=== PATIENT | male | born 1965 | race Caucasian/White ===

== ENCOUNTER 2016-09-06 09:39 | Emergency (ER) | payer BC ==
[2016-09-06] MEDS ORDERED: Diphtheria,Pertussis(Acell),Tetanus Vaccine 0.5 ML SDV inactive IM ONE (10:15)
[2016-09-06] MEDS ORDERED: Bupivacaine 0.5% 10 ML SDV INJECT ONE (10:15)
--- NOTE | 2016-09-06 10:19 | EDM.PDOC ---
ED HPI Skin/Rash - General Chief Complaint: Laceration Stated Complaint: Laceration to thumb Time Seen by Provider: 09/06/16 10:05 Source: Reports: Patient, RN notes reviewed History Limitations: Reports: No limitations - History of Present Illness INITIAL COMMENTS - FREE TEXT/NARRATIVE: 50 year old male presents to the ED with laceration over PIP joint of the left thumb. Injury occurred as a result of a crush type injury involving a grain auger. Occurred around 9am. He has good movement of the thumb. No numbness or tingling. Last tetanus is unknown. No additional injuries. - Related Data Allergies Allergy/AdvReac Type Severity Reaction Status Date / Time No Known Allergies Allergy Verified 09/06/16 09:53 Home Meds: Ambulatory Orders Medication Instructions Recorded Confirmed Adalimumab [Humira] 20 mg SQ ASDIRECTED 09/06/16 09/06/16 Folic Acid 1 mg PO DAILY 09/06/16 09/06/16 Past Medical History Musculoskeletal History: Reports: RA - Past Surgical History Musculoskeletal Surgical History: Reports: Arthroscopic knee, Other (see below) Other Musculoskeletal Surgeries/Procedures:: thumb surgery Social & Family History - Family History Cardiac: Reports: Other (see below) Other Cardiac Family History: "mother had heart problems" - Tobacco Use Smoking Status *Q: Never Smoker Second Hand Smoke Exposure: No - Caffeine Use Caffeine Use: Reports: Coffee, Soda - Recreational Drug Use Recreational Drug Use: No ED ROS GENERAL - Review of Systems Review Of Systems: See Below Musculoskeletal: Reports: other (left thumb pain) Skin: Reports: wound Neurological: Reports: No Symptoms. Denies: Numbness, Tingling, Weakness ED EXAM, SKIN/RASH Exam: See Below Exam Limited By: No limitations General Appearance: alert, WD/WN, no apparent distress Respiratory/Chest: no respiratory distress Cardiovascular: regular rate, rhythm Extremities: normal range of motion, other (full ROM against resistance of the left thumb. No tendon injury.) Neurological: alert, oriented, no motor/sensory deficits Skin: Warm, Dry, Normal color, Other (large, deep 6 cm laceration to the dorsal aspect of the left thumb PIP joint. No tendon injury. CMS intact.) ED SKIN PROCEDURES - Laceration/Wound Repair Left Finger Lac/wound length in cm: 6 Appearance: superficial (partially), subcutaneous, other (horse shoe shaped over left thumb PIP joint) Distal NVT: neuro & vascular intact, no tendon injury Anesthetic type: digital Local anesthesia - Bupivicaine (Marcaine): 0.5% plain Local anesthetic volume: 5cc Exploration/Debridement/Repair: wound explored, in a bloodless field, explored to base, minimal debridement, no foreign material found Closed with: sutures Suture size: 4-0 # of sutures: 7 Suture type: nylon, interrupted, simple Sterile dressing applied: nurse Tetanus status addressed: Yes Complications: No Course - Vital Signs Last Recorded V/S: Last Vital Signs Temp 97.5 F 09/06/16 09:49 Pulse 72 09/06/16 09:49 Resp 16 09/06/16 09:49 BP 134/97 H 09/06/16 09:49 Pulse Ox 96 09/06/16 09:49 - Orders/Labs/Meds Orders: Active Orders 24 hr Category Date Time Status Vaccines to be Administered [RC] PER UNIT ROUTINE Care 09/06/16 10:15 Active Fingers Thumb Lt FA [CR] Stat Exams 09/06/16 10:15 Taken Meds: Medications Discontinued Medications Generic Name Dose Route Start Last Admin Trade Name Alison PRN Reason Stop Dose Admin Bupivacaine HCl 10 ml 09/06/16 10:15 09/06/16 10:40 Sensorcaine-Mpf 0.5% INJECT 09/06/16 10:16 10 ml ONETIME ONE Administration Diphtheria/Tetanus/Acell Pertussis 0.5 ml 09/06/16 10:15 09/06/16 10:43 Boostrix IM 09/06/16 10:16 0.5 ml .ONCE ONE Administration - Re-Assessments/Exams Free Text/Narrative Re-Assessment/Exam: X-ray of left thumb reveals some degenerative changes. There is a subtle area that may represent a corner fracture however this appears old and not acute. Radiologist report is pending. Will place patient on antibiotics prophylactically. Educated on wound care, follow-up, and return precautions. Departure - Departure Time of Disposition: 11:12 Disposition: Home, Self-Care 01 Condition: good Clinical Impression: Laceration Instructions: Laceration Care, Adult, [id number] Referrals: PCP,None [Primary Care Provider] - Forms: ED Department Discharge Additional Instructions: Laceration with suture repair Try to keep initial dressing in place for 24 hours After 24 hours, you can gently wash the wound with gentle soap and water Do not submerge the area in water until the sutures are out Apply antibiotic ointment and keep the wound covered for first 2-3 days then leave open to air Keep wound covered if there is a chance it can get dirty Sutures need to be removed in 8-10 days [facility] removes sutures for free. Their hours are 8am-6pm Wednesday through Wednesday. Return to clinic if signs or symptoms of infection arise, including increased redness, swelling, drainage, or fever Tylenol or Ibuprofen as needed for pain Keflex 500mg 3 times a day for 5 days - My Orders Last 24 Hours: My Active Orders 09/06/16 10:15 Vaccines to be Administered [RC] PER UNIT ROUTINE Fingers Thumb Lt FA [CR] Stat - Assessment/Plan Last 24 Hours: My Active Orders 09/06/16 10:15 Vaccines to be Administered [RC] PER UNIT ROUTINE Fingers Thumb Lt FA [CR] Stat
[2016-09-06 11:59] VITALS: BP 126/88
--- NOTE | 2016-09-07 10:34 | CR ---
Left thumb: Three views of the left thumb were obtained. Comparison: No previous thumb exam. Severe joint space narrowing is noted within the MCP joint with osteophytes. IP joint shows minimal degenerative change. No acute fracture or other bony abnormality is identified. Soft tissue swelling is present. Impression: 1. Degenerative change as described above. 2. Soft tissue swelling. 3. No acute bony abnormality is identified. Diagnostic code #2
== END 2016-09-06 11:35 | disposition home or self-care (01) ==
LOC: JD.ED 09:39
DX: S61.012A Laceration without foreign body of left thumb without damage to nail, initial encounter (principal); Z23 Encounter for immunization; W23.0XXA Caught, crushed, jammed, or pinched between moving objects, initial encounter; Z98.890 Other specified postprocedural states
CPT/HCPCS: 12002; 12042; 73140-26-FA; 73140-FA; 90471; 90715; 99283; 99284-25

== ENCOUNTER 2019-04-02 18:10 | Emergency (ER) | payer BC ==
[2019-04-02 18:25] VITALS: BP 136/75; PULSE 89
--- NOTE | 2019-04-02 19:00 | EDM.PDOC ---
ED HPI GENERAL MEDICAL PROBLEM - General Chief Complaint: Lower Extremity Injury/Pain Stated Complaint: LT ANKLE INJURY Time Seen by Provider: 04/02/19 18:28 Source of Information: Reports: Patient, RN Notes Reviewed History Limitations: Reports: No Limitations - History of Present Illness INITIAL COMMENTS - FREE TEXT/NARRATIVE: Patient is a 53-year-old male who presents to the ED for evaluation of a left ankle injury. Patient notes that after lutheran this morning, he was walking around his car, when he slipped on the ice and ended up injuring his left ankle. Patient did try to use some tramadol this morning, and provided a little bit of relief, but has not helped a whole off a lot. He also has a history of rheumatoid arthritis, he is on Enbrel and methotrexate. Patient states he is not able to bear much weight on the extremity, as it is very painful. He does appreciate swelling to both medial and lateral aspects of his ankle. He has been using ice on and off all day to his ankle. He denies any pain into his knee or hip, he has no numbness or tingling into his toes. Left Ankle Pain Score (Numeric/FACES): 4 - Related Data Allergies Allergy/AdvReac Type Severity Reaction Status Date / Time No Known Allergies Allergy Verified 04/02/19 18:25 Home Meds: Home Meds Folic Acid 1 mg PO DAILY 09/06/16 [History] Etanercept [Enbrel] 0 mg INJECT ASDIRECTED 02/12/18 [History] traMADol [Ultram] 50 mg PO Q6H PRN #30 tab 02/12/18 [Rx] Methotrexate Sodium [Methotrexate] 04/02/19 [History] Past Medical History - Past Health History Medical/Surgical History: Denies Medical/Surgical History Musculoskeletal History: Reports: RA - Past Surgical History Musculoskeletal Surgical History: Reports: Arthroscopic Knee, Other (See Below) Social & Family History - Family History Cardiac: Reports: Other (See Below) Other Cardiac Family History: "mother had heart problems" - Tobacco Use Smoking Status *Q: Never Smoker - Caffeine Use Caffeine Use: Reports: Coffee, Soda Review of Systems - Review of Systems Review Of Systems: Comprehensive ROS is negative, except as noted in HPI. Musculoskeletal: Reports: Joint Pain (L ankle), Joint Swelling (L ankle) Skin: Denies: Pruritis Neurological: Denies: Numbness, Tingling ED EXAM, GENERAL - Physical Exam Exam: See Below Exam Limited By: No Limitations General Appearance: Alert, WD/WN, No Apparent Distress Respiratory/Chest: No Respiratory Distress, Lungs Clear, Normal Breath Sounds, No Accessory Muscle Use, Chest Non-Tender Cardiovascular: Normal Peripheral Pulses, Regular Rate, Rhythm, No Murmur Peripheral Pulses: 3+: Dorsalis Pedis (L), Dorsalis Pedis (R) Extremities: Normal Inspection, Normal Capillary Refill, Joint Swelling (Left ankle), Limited Range of Motion (of left ankle d/t pain) Neurological: Alert, Oriented, Normal Cognition, No Motor/Sensory Deficits Psychiatric: Normal Affect, Normal Mood Skin Exam: Warm, Dry, Intact, Normal Color, No Rash Course - Vital Signs Last Recorded V/S: Last Vital Signs Temp 96.3 F 04/02/19 18:23 Pulse 89 04/02/19 18:23 Resp 18 04/02/19 18:23 BP 136/75 04/02/19 18:23 Pulse Ox 97 04/02/19 18:23 - Orders/Labs/Meds Orders: Active Orders 24 hr Category Date Time Status Ankle Min 3V Lt [CR] Stat Exams 04/02/19 18:35 Ordered - Re-Assessments/Exams Free Text/Narrative Re-Assessment/Exam: 04/02/19 18:59 Patient presents to the ED for evaluation of a left ankle injury. Did order x- rays to further evaluate the injury, patient requested no pain meds at this time. 04/02/19 19:26 Patient x-ray is done, and reviewed by myself and Dr. Hidalgo, there is no obvious fracture or bony abnormality appreciated by him or myself. We will Demian wrap the patient's ankle, and have him try to limit activities the next couple days, and use rest, ice, elevation for further management. Departure - Departure Time of Disposition: 19:27 Disposition: Home, Self-Care 01 Condition: Fair Clinical Impression: Moderate left ankle sprain Qualifiers: Encounter type: initial encounter Qualified Code(s): S93.402A - Sprain of unspecified ligament of left ankle, initial encounter - Discharge Information *PRESCRIPTION DRUG MONITORING PROGRAM REVIEWED*: Yes *COPY OF PRESCRIPTION DRUG MONITORING REPORT IN PATIENT JUANCARLOS: No Instructions: Ankle Sprain, [id number] Referrals: PCP,None [Primary Care Provider] - Forms: ED Department Discharge Additional Instructions: You have been evaluated in the ED for your left ankle pain. Your x-ray demonstrated no acute fracture or bony abnormality. Please use ice as tolerated to the affected area. Please try to elevate the affected area to relieve swelling. Recommend that you try to limit activities as much as possible over the next few days, to help the ankle heal quicker. You may obtain a stirrup type ankle brace, at [facility] if the Demian wrap does not provide enough support for your ankle. You may take Tylenol 500 mg q6 hrs for pain relief. Please do so until you have a tolerable level of pain with activity. Do not exceed 4000mg Tylenol in a 24 hour time period. You were given a prescription of some stronger pain medications, hydrocodone/acetaminophen 5/325, please take 1 tab every 6 hours as needed for further pain relief. Please try to take as few of these as possible, as this can be addictive, also these can be quite constipating recommend that you increase your oral fluid intake or start a stool softener like MiraLAX while taking this medication. Please return to ED if your symptoms should change or worsen. - My Orders Last 24 Hours: My Active Orders 04/02/19 18:35 Ankle Min 3V Lt [CR] Stat - Assessment/Plan Last 24 Hours: My Active Orders 04/02/19 18:35 Ankle Min 3V Lt [CR] Stat
--- NOTE | 2019-04-03 09:12 | CR ---
Left ankle: Four views of the left ankle were obtained. Comparison: No prior ankle exam. Bone density which is well corticated is noted off the lateral ankle compatible with old injury. Soft tissue swelling is identified. No acute fracture is appreciated. No dislocation or other bony abnormality is identified. Impression: 1. Well-corticated bony density compatible with old injury off the lateral ankle. 2. No acute bony abnormality is appreciated. 3. Soft tissue swelling. Diagnostic code #2 This report was dictated in [place] Standard Time
== END 2019-04-02 19:43 | disposition home or self-care (01) ==
LOC: JD.ED 18:10
DX: S93.402A Sprain of unspecified ligament of left ankle, initial encounter (principal); M06.9 Rheumatoid arthritis, unspecified; Z79.899 Other long term (current) drug therapy; W18.49XA Other slipping, tripping and stumbling without falling, initial encounter; Y93.01 Activity, walking, marching and hiking
CPT/HCPCS: 73610-26-LT; 73610-LT; 99282; 99283-25

== ENCOUNTER 2020-03-16 11:43 | Inpatient (IN) | payer BC ==
[2020-03-16] MEDS ORDERED: Sodium Chloride 0.9% 10 ML Syringe FLUSH PRN (12:44)
--- NOTE | 2020-03-16 12:57 | EDM.PDOC ---
ED HPI GENERAL MEDICAL PROBLEM - General Chief Complaint: Respiratory Problem Stated Complaint: COVID SX Time Seen by Provider: 03/16/20 12:08 Source of Information: Reports: Patient, RN Notes Reviewed History Limitations: Reports: No Limitations - History of Present Illness INITIAL COMMENTS - FREE TEXT/NARRATIVE: Patient is a 54-year-old male who presents to the ED for the evaluation of his Covid symptoms. Patient notes that he began to be symptomatic last week Wednesday which would have been 03/08/2020. He states that on Wednesday he developed a loss of his sense of taste. He has been complaining of fevers and chills at home along with diffuse body aches. He is afebrile at the time of triage at 98.6 F, his O2 sats are anywhere from 88 to 91% on room air. He is in no obvious respiratory distress at this time. He does have a history of rheumatoid arthritis, and is on methotrexate and Enbrel. He states that he is only mildly short of breath when he has coughing spells, for which she has an intermittent dry cough. He notes that he is not really been eating as much as he normally does, and feels generalized fatigue. He has been trying to drink fluids at home and does not seem to have any nausea or vomiting with this. He states he does not know who he would have come in contact with to gain the sickness from, as he has had no known sick contacts that he is aware of. - Related Data Allergies Allergy/AdvReac Type Severity Reaction Status Date / Time No Known Allergies Allergy Verified 03/16/20 11:59 Home Meds: Home Meds Folic Acid 1 mg PO DAILY 09/06/16 [History] Etanercept [Enbrel] 0 mg INJECT WEEKLY 02/12/18 [History] metHOTREXate sodium [Methotrexate] 6 tab PO WEEKLY 04/02/19 [History] Past Medical History Musculoskeletal History: Reports: RA Immunologic History: Reports: Immunosuppression (on methotrexate and Enbrel for RA) - Past Surgical History Musculoskeletal Surgical History: Reports: Arthroscopic Knee, Other (See Below) Other Musculoskeletal Surgeries/Procedures:: thumb surgery Social & Family History - Family History Cardiac: Reports: Other (See Below) Other Cardiac Family History: "mother had heart problems" - Tobacco Use Tobacco Use Status *Q: Never Tobacco User Second Hand Smoke Exposure: No - Caffeine Use Caffeine Use: Reports: Coffee - Recreational Drug Use Recreational Drug Use: No ED ROS GENERAL - Review of Systems Review Of Systems: Comprehensive ROS is negative, except as noted in HPI. ED EXAM, GENERAL - Physical Exam Exam: See Below Exam Limited By: No Limitations General Appearance: Alert, WD/WN, No Apparent Distress Eye Exam: Bilateral Eye: Conjunctival Injection Throat/Mouth: Normal Inspection, Normal Lips, Normal Teeth, Normal Gums, Normal Oropharynx, Normal Voice, No Airway Compromise Head: Atraumatic, Normocephalic Neck: Normal Inspection Respiratory/Chest: No Respiratory Distress, Lungs Clear, Normal Breath Sounds, No Accessory Muscle Use, Chest Non-Tender Cardiovascular: Normal Peripheral Pulses, Regular Rate, Rhythm, No Murmur Extremities: Normal Inspection, Normal Capillary Refill Neurological: Alert, Oriented, Normal Cognition, No Motor/Sensory Deficits Psychiatric: Normal Affect, Normal Mood Skin Exam: Warm, Dry, Intact, Normal Color, No Rash #1 Interpretation EKG Date: 03/16/20 Time: 12:56 Rhythm: NSR Rate (Beats/Min): 84 [place]: Normal P-Wave: Present QRS: Normal ST-T: Normal QT: Normal EKG Interpretation Comments: No obvious ischemia or acute ST changes noted, reviewed by myself and Dr. Bhatt. Course - Vital Signs Last Recorded V/S: Last Vital Signs Temp 98.6 F 03/16/20 11:57 Pulse 90 03/16/20 11:57 Resp 16 03/16/20 11:57 BP 135/93 H 03/16/20 11:57 Pulse Ox 91 L 03/16/20 11:57 - Orders/Labs/Meds Orders: Active Orders 24 hr Category Date Time Status Admission Status [Patient Status] [ADT] Routine ADT 03/16/20 14:46 Ordered EKG Documentation Completion [RC] STAT Care 03/16/20 12:39 Ordered Oxygen Therapy [RC] ASDIRECTED Care 03/16/20 14:42 Ordered Peripheral IV Care [RC] . DIRECTED Care 03/16/20 12:44 Ordered Chest 1V Frontal [CR] Stat Exams 03/16/20 12:39 Ordered CULTURE BLOOD [BC] Stat Lab 03/16/20 12:40 Ordered CULTURE BLOOD [BC] Stat Lab 03/16/20 12:40 Ordered Sodium Chloride 0.9% [Saline Flush] Med 03/16/20 12:44 Ordered 10 ml FLUSH ASDIRECTED PRN Blood Culture x2 Reflex Set [OM.PC] Stat Oth 03/16/20 12:39 Ordered Isolation [COMM] Routine Ot 03/16/20 12:39 Ordered Peripheral IV Insertion Adult [OM.PC] Routine Ot 03/16/20 12:44 Ordered Medication Orders Sodium Chloride (Saline Flush) 10 ml FLUSH ASDIRECTED PRN PRN Reason: Keep Vein Open Last Admin: 03/16/20 13:12 Dose: 10 ml Documented by: TOMMY Labs: Laboratory Tests 03/16/20 03/16/20 03/16/20 Range/Units 12:58 12:58 12:58 WBC 5.06 (4.23-9.07) K/mm3 RBC 4.57 L (4.63-6.08) M/mm3 Hgb 15.4 (13.7-17.5) gm/dl Hct 46.0 (40.1-51.0) % MCV 100.7 H (79.0-92.2) fl MCH 33.7 H (25.7-32.2) pg MCHC 33.5 (32.2-35.5) g/dl RDW Std Deviation 44.9 H (35.1-43.9) fL Plt Count 205 (163-337) K/mm3 MPV 9.6 (9.4-12.3) fl Neutrophils % (Manual) 62 H (40-60) % Band Neutrophils % 0 (0-10) % Lymphocytes % (Manual) 26 (20-40) % Atypical Lymphs % 0 % Monocytes % (Manual) 12 H (2-10) % Eosinophils % (Manual) 0 L (0.8-7.0) % Basophils % (Manual) 0 L (0.2-1.2) Platelet Estimate Adequate Anisocytosis 1+ slight Macrocytosis 1+ slight RBC Morph Comment Abnormal PT 10.4 (9.7-12.0) SECONDS INR 0.97 APTT 26.8 (21.7-31.4) SECONDS D-Dimer, Quantitative 0.52 H (0.19-0.50) mg/L Puncture Site ABG pH (7.35-7.45) ABG pCO2 (35.0-45.0) mmHg ABG pO2 (80.0-100.0) mmHg ABG HCO3 (22.0-26.0) meq/L ABG O2 Saturation (96.0-97.0) % ABG Base Excess (-2-2.0) A-a Gradient mmHg O2 Delivery Device Oxygen Flow Rate FiO2 (21.00-100.00) % Sodium 133 L (136-145) mEq/L Potassium 4.5 (3.5-5.1) mEq/L Chloride 97 L (98-107) mEq/L Carbon Dioxide 29 (21-32) mEq/L Anion Gap 11.5 (5-15) BUN 14 (7-18) mg/dL Creatinine 1.1 (0.7-1.3) mg/dL Est Cr Clr Drug Dosing 85.24 mL/min Estimated GFR (MDRD) > 60 (>60) mL/min BUN/Creatinine Ratio 12.7 L (14-18) Glucose 89 (74-106) mg/dL Lactic Acid (0.4-2.0) mmol/L Calcium 9.1 (8.5-10.1) mg/dL Magnesium 2.3 (1.8-2.4) mg/dl Ferritin (26-388) ng/ml Total Bilirubin 0.7 (0.2-1.0) mg/dL AST 25 (15-37) U/L ALT 63 (16-63) U/L Alkaline Phosphatase 57 (46-116) U/L Lactate Dehydrogenase 204 (85-227) U/L Troponin I < 0.017 (0.00-0.056) ng/mL C-Reactive Protein (<1.0) mg/dL NT-Pro-B Natriuret Pep (0-125) pg/mL Total Protein 8.0 (6.4-8.2) g/dl Albumin 3.6 (3.4-5.0) g/dl Globulin 4.4 gm/dL Albumin/Globulin Ratio 0.8 L (1-2) SARS-CoV-2 RNA (INGE) (NEGATIVE) 03/16/20 03/16/20 03/16/20 Range/Units 12:58 12:58 12:58 WBC (4.23-9.07) K/mm3 RBC (4.63-6.08) M/mm3 Hgb (13.7-17.5) gm/dl Hct (40.1-51.0) % MCV (79.0-92.2) fl MCH (25.7-32.2) pg MCHC (32.2-35.5) g/dl RDW Std Deviation (35.1-43.9) fL Plt Count (163-337) K/mm3 MPV (9.4-12.3) fl Neutrophils % (Manual) (40-60) % Band Neutrophils % (0-10) % Lymphocytes % (Manual) (20-40) % Atypical Lymphs % % Monocytes % (Manual) (2-10) % Eosinophils % (Manual) (0.8-7.0) % Basophils % (Manual) (0.2-1.2) Platelet Estimate Anisocytosis Macrocytosis RBC Morph Comment PT (9.7-12.0) SECONDS INR APTT (21.7-31.4) SECONDS D-Dimer, Quantitative (0.19-0.50) mg/L Puncture Site ABG pH (7.35-7.45) ABG pCO2 (35.0-45.0) mmHg ABG pO2 (80.0-100.0) mmHg ABG HCO3 (22.0-26.0) meq/L ABG O2 Saturation (96.0-97.0) % ABG Base Excess (-2-2.0) A-a Gradient mmHg O2 Delivery Device Oxygen Flow Rate FiO2 (21.00-100.00) % Sodium (136-145) mEq/L Potassium (3.5-5.1) mEq/L Chloride (98-107) mEq/L Carbon Dioxide (21-32) mEq/L Anion Gap (5-15) BUN (7-18) mg/dL Creatinine (0.7-1.3) mg/dL Est Cr Clr Drug Dosing mL/min Estimated GFR (MDRD) (>60) mL/min BUN/Creatinine Ratio (14-18) Glucose (74-106) mg/dL Lactic Acid 0.9 (0.4-2.0) mmol/L Calcium (8.5-10.1) mg/dL Magnesium (1.8-2.4) mg/dl Ferritin 2097 H (26-388) ng/ml Total Bilirubin (0.2-1.0) mg/dL AST (15-37) U/L ALT (16-63) U/L Alkaline Phosphatase (46-116) U/L Lactate Dehydrogenase (85-227) U/L Troponin I (0.00-0.056) ng/mL C-Reactive Protein (<1.0) mg/dL NT-Pro-B Natriuret Pep 18 (0-125) pg/mL Total Protein (6.4-8.2) g/dl Albumin (3.4-5.0) g/dl Globulin gm/dL Albumin/Globulin Ratio (1-2) SARS-CoV-2 RNA (INGE) (NEGATIVE) 03/16/20 03/16/20 03/16/20 Range/Units 12:59 13:05 13:13 WBC (4.23-9.07) K/mm3 RBC (4.63-6.08) M/mm3 Hgb (13.7-17.5) gm/dl Hct (40.1-51.0) % MCV (79.0-92.2) fl MCH (25.7-32.2) pg MCHC (32.2-35.5) g/dl RDW Std Deviation (35.1-43.9) fL Plt Count (163-337) K/mm3 MPV (9.4-12.3) fl Neutrophils % (Manual) (40-60) % Band Neutrophils % (0-10) % Lymphocytes % (Manual) (20-40) % Atypical Lymphs % % Monocytes % (Manual) (2-10) % Eosinophils % (Manual) (0.8-7.0) % Basophils % (Manual) (0.2-1.2) Platelet Estimate Anisocytosis Macrocytosis RBC Morph Comment PT (9.7-12.0) SECONDS INR APTT (21.7-31.4) SECONDS D-Dimer, Quantitative (0.19-0.50) mg/L Puncture Site Rt radial ABG pH 7.48 H (7.35-7.45) ABG pCO2 33.7 L (35.0-45.0) mmHg ABG pO2 59.0 L (80.0-100.0) mmHg ABG HCO3 24.6 (22.0-26.0) meq/L ABG O2 Saturation 91.3 L (96.0-97.0) % ABG Base Excess 2.0 (-2-2.0) A-a Gradient 49 mmHg O2 Delivery Device Room air Oxygen Flow Rate 0.0 FiO2 21.00 (21.00-100.00) % Sodium (136-145) mEq/L Potassium (3.5-5.1) mEq/L Chloride (98-107) mEq/L Carbon Dioxide (21-32) mEq/L Anion Gap (5-15) BUN (7-18) mg/dL Creatinine (0.7-1.3) mg/dL Est Cr Clr Drug Dosing mL/min Estimated GFR (MDRD) (>60) mL/min BUN/Creatinine Ratio (14-18) Glucose (74-106) mg/dL Lactic Acid (0.4-2.0) mmol/L Calcium (8.5-10.1) mg/dL Magnesium (1.8-2.4) mg/dl Ferritin (26-388) ng/ml Total Bilirubin (0.2-1.0) mg/dL AST (15-37) U/L ALT (16-63) U/L Alkaline Phosphatase (46-116) U/L Lactate Dehydrogenase (85-227) U/L Troponin I (0.00-0.056) ng/mL C-Reactive Protein 5.8 H* (<1.0) mg/dL NT-Pro-B Natriuret Pep (0-125) pg/mL Total Protein (6.4-8.2) g/dl Albumin (3.4-5.0) g/dl Globulin gm/dL Albumin/Globulin Ratio (1-2) SARS-CoV-2 RNA (INGE) Positive H (NEGATIVE) Meds: Medications Generic Name Dose Route Start Last Admin Trade Name Freq PRN Reason Stop Dose Admin Sodium Chloride 10 ml 03/16/20 12:44 03/16/20 13:12 Saline Flush FLUSH 10 ml ASDIRECTED PRN Administration Keep Vein Open - Re-Assessments/Exams Free Text/Narrative Re-Assessment/Exam: 03/16/20 12:56 Patient presents to the ED for the evaluation of his Covid-like symptoms. He has many of the symptoms of Covid, he will be tested for today's purposes, and he is somewhat hypoxic, I do suspect he might need hospitalization, nonetheless we will await laboratory evaluation to make determination on disposition at this time. Departure - Departure Time of Disposition: 14:48 Disposition: Admitted As Inpatient 67 Condition: Good Clinical Impression: COVID-19, Hypoxia - Discharge Information *PRESCRIPTION DRUG MONITORING PROGRAM REVIEWED*: No *COPY OF PRESCRIPTION DRUG MONITORING REPORT IN PATIENT JUANCARLOS: No Referrals: PCP,None [Primary Care Provider] - Forms: ED Department Discharge Sepsis Event Note (ED) - Evaluation Sepsis Screening Result: No Definite Risk - Focused Exam Vital Signs: Vital Signs Temp Pulse Resp BP Pulse Ox 03/16/20 11:57 98.6 F 90 16 135/93 H 91 L - My Orders Last 24 Hours: My Active Orders 03/16/20 12:39 EKG Documentation Completion [RC] STAT Chest 1V Frontal [CR] Stat Blood Culture x2 Reflex Set [OM.PC] Stat Isolation [COMM] Routine 03/16/20 12:40 CULTURE BLOOD [BC] Stat CULTURE BLOOD [BC] Stat 03/16/20 12:44 Peripheral IV Care [RC] . DIRECTED Sodium Chloride 0.9% [Saline Flush] 10 ml FLUSH ASDIRECTED PRN Peripheral IV Insertion Adult [OM.PC] Routine 03/16/20 14:42 Oxygen Therapy [RC] ASDIRECTED 03/16/20 14:46 Admission Status [Patient Status] [ADT] Routine - Assessment/Plan Last 24 Hours: My Active Orders 03/16/20 12:39 EKG Documentation Completion [RC] STAT Chest 1V Frontal [CR] Stat Blood Culture x2 Reflex Set [OM.PC] Stat Isolation [COMM] Routine 03/16/20 12:40 CULTURE BLOOD [BC] Stat CULTURE BLOOD [BC] Stat 03/16/20 12:44 Peripheral IV Care [RC] . DIRECTED Sodium Chloride 0.9% [Saline Flush] 10 ml FLUSH ASDIRECTED PRN Peripheral IV Insertion Adult [OM.PC] Routine 03/16/20 14:42 Oxygen Therapy [RC] ASDIRECTED 03/16/20 14:46 Admission Status [Patient Status] [ADT] Routine
[2020-03-16] MEDS: Acetaminophen 325 MG Tab PO PRN ×2 (16:48→21:13)
[2020-03-16] MEDS: Benzocaine/Cetylpyridinium/Menthol Lozenge MUCMEM PRN ×2 (16:51→21:15)
[2020-03-16] MEDS ORDERED: Ondansetron 4 MG/2 ML SDV IV PRN (17:07)
[2020-03-16] MEDS ORDERED: REMDESIVIR 200 MG in Sodium Chloride 0.9% 250 ML IV ONE ×2 (17:11→18:00)
--- NOTE | 2020-03-16 17:21 | PCM.HP.2 ---
H&P History of Present Illness - General Date of Service: 03/16/20 Admit Problem/Dx: Admission Diagnosis/Problem Admission Diagnosis/Problem Hypoxia - History of Present Illness Initial Comments - Free Text/Narative: 54-year-old male who developed a cough last 03/08/2020, when he was deer hunting and then over the last few days lost his sense of smell and developed low-grade fever in the low 100s and cough. Patient states that he has been coughing hard enough to be short of breath and even lightheaded/dizzy. He has diffuse body aches and chills. When he presented to the emergency department his oxygen saturations were between 88 and 91% on room air. Patient does have an history of rheumatoid arthritis diagnosed 6 or 7 years ago and is on methotrexate and Enbrel. - Related Data Allergies/Adverse Reactions: Allergies Allergy/AdvReac Type Severity Reaction Status Date / Time No Known Allergies Allergy Verified 03/16/20 11:59 Home Medications: Home Meds Folic Acid 1 mg PO DAILY 09/06/16 [History] Etanercept [Enbrel] 0 mg INJECT WEEKLY 02/12/18 [History] metHOTREXate sodium [Methotrexate] 6 tab PO WEEKLY 04/02/19 [History] Past Medical History - Past Health History Medical/Surgical History: Denies Medical/Surgical History Other HEENT History: Needs glasses to see far away, bifocal. wears only occassionally. Musculoskeletal History: Reports: RA Other Musculoskeletal History: on medications to manage. Immunologic History: Reports: Immunosuppression Other Immunologic History: due to medication. - Past Surgical History Musculoskeletal Surgical History: Reports: Arthroscopic Knee, Other (See Below) Other Musculoskeletal Surgeries/Procedures:: thumb surgery Social & Family History - Family History Cardiac: Reports: Other (See Below) Other Cardiac Family History: "mother had heart problems" - Tobacco Use Tobacco Use Status *Q: Never Tobacco User Second Hand Smoke Exposure: No - Caffeine Use Caffeine Use: Reports: Coffee, Soda - Alcohol Use Days Per Week of Alcohol Use: 1 Number of Drinks Per Day: 4 Total Drinks Per Week: 4 - Recreational Drug Use Recreational Drug Use: No H&P Review of Systems - Review of Systems: Review Of Systems: Comprehensive ROS is negative, except as noted in HPI. Exam - Exam Exam: See Below - Vital Signs Vital Signs: Last Vital Signs Temp 99.1 F 03/16/20 16:48 Pulse 85 03/16/20 16:05 Resp 24 H 03/16/20 16:05 BP 124/86 03/16/20 16:05 Pulse Ox 94 L 03/16/20 16:36 Weight: 216 lb 3.2 oz - Exam Quality Assessment: Supplemental Oxygen (1 to 2 L/min nasal cannula) General: Alert, Oriented, 4 HEENT: Conjunctiva Clear, Hearing Intact, Mucosa Moist & [place], PERRLA Neck: Supple, Trachea Midline, 2 Lungs: Clear to Auscultation, Normal Respiratory Effort Cardiovascular: Regular Rate, Regular Rhythm GI/Abdominal Exam: Normal Bowel Sounds, Soft, Non-Tender, No Organomegaly, No Distention, No Abnormal Bruit, No Mass Back Exam: Normal Inspection, Full Range of Motion, NT Extremities: Normal Inspection, Normal Range of Motion, Non-Tender, No Pedal Edema, Normal Capillary Refill Skin: Warm, Dry, Intact Neurological: Cranial Nerves Intact, Reflexes Equal Bilateral Neuro Extensive - Motor, Sensory, Reflexes: CN II-XII Intact, Normal Gait, Normal Reflexes Psychiatric: Alert, Normal Affect, Normal Mood - Patient Data Lab Results Last 24 hrs: Laboratory Results - last 24 hr 03/16/20 03/16/20 03/16/20 Range/Units 12:58 12:58 12:58 WBC 5.06 (4.23-9.07) K/mm3 RBC 4.57 L (4.63-6.08) M/mm3 Hgb 15.4 (13.7-17.5) gm/dl Hct 46.0 (40.1-51.0) % MCV 100.7 H (79.0-92.2) fl MCH 33.7 H (25.7-32.2) pg MCHC 33.5 (32.2-35.5) g/dl RDW Std Deviation 44.9 H (35.1-43.9) fL Plt Count 205 (163-337) K/mm3 MPV 9.6 (9.4-12.3) fl Neutrophils % (Manual) 62 H (40-60) % Band Neutrophils % 0 (0-10) % Lymphocytes % (Manual) 26 (20-40) % Atypical Lymphs % 0 % Monocytes % (Manual) 12 H (2-10) % Eosinophils % (Manual) 0 L (0.8-7.0) % Basophils % (Manual) 0 L (0.2-1.2) Platelet Estimate Adequate Anisocytosis 1+ slight Macrocytosis 1+ slight RBC Morph Comment Abnormal PT 10.4 (9.7-12.0) SECONDS INR 0.97 APTT 26.8 (21.7-31.4) SECONDS D-Dimer, Quantitative 0.52 H (0.19-0.50) mg/L Puncture Site ABG pH (7.35-7.45) ABG pCO2 (35.0-45.0) mmHg ABG pO2 (80.0-100.0) mmHg ABG HCO3 (22.0-26.0) meq/L ABG O2 Saturation (96.0-97.0) % ABG Base Excess (-2-2.0) A-a Gradient mmHg O2 Delivery Device Oxygen Flow Rate FiO2 (21.00-100.00) % Sodium 133 L (136-145) mEq/L Potassium 4.5 (3.5-5.1) mEq/L Chloride 97 L (98-107) mEq/L Carbon Dioxide 29 (21-32) mEq/L Anion Gap 11.5 (5-15) BUN 14 (7-18) mg/dL Creatinine 1.1 (0.7-1.3) mg/dL Est Cr Clr Drug Dosing 85.24 mL/min Estimated GFR (MDRD) > 60 (>60) mL/min BUN/Creatinine Ratio 12.7 L (14-18) Glucose 89 (74-106) mg/dL Lactic Acid (0.4-2.0) mmol/L Calcium 9.1 (8.5-10.1) mg/dL Magnesium 2.3 (1.8-2.4) mg/dl Ferritin (26-388) ng/ml Total Bilirubin 0.7 (0.2-1.0) mg/dL AST 25 (15-37) U/L ALT 63 (16-63) U/L Alkaline Phosphatase 57 (46-116) U/L Lactate Dehydrogenase 204 (85-227) U/L Troponin I < 0.017 (0.00-0.056) ng/mL C-Reactive Protein (<1.0) mg/dL NT-Pro-B Natriuret Pep (0-125) pg/mL Total Protein 8.0 (6.4-8.2) g/dl Albumin 3.6 (3.4-5.0) g/dl Globulin 4.4 gm/dL Albumin/Globulin Ratio 0.8 L (1-2) SARS-CoV-2 RNA (INGE) (NEGATIVE) 03/16/20 03/16/20 03/16/20 Range/Units 12:58 12:58 12:58 WBC (4.23-9.07) K/mm3 RBC (4.63-6.08) M/mm3 Hgb (13.7-17.5) gm/dl Hct (40.1-51.0) % MCV (79.0-92.2) fl MCH (25.7-32.2) pg MCHC (32.2-35.5) g/dl RDW Std Deviation (35.1-43.9) fL Plt Count (163-337) K/mm3 MPV (9.4-12.3) fl Neutrophils % (Manual) (40-60) % Band Neutrophils % (0-10) % Lymphocytes % (Manual) (20-40) % Atypical Lymphs % % Monocytes % (Manual) (2-10) % Eosinophils % (Manual) (0.8-7.0) % Basophils % (Manual) (0.2-1.2) Platelet Estimate Anisocytosis Macrocytosis RBC Morph Comment PT (9.7-12.0) SECONDS INR APTT (21.7-31.4) SECONDS D-Dimer, Quantitative (0.19-0.50) mg/L Puncture Site ABG pH (7.35-7.45) ABG pCO2 (35.0-45.0) mmHg ABG pO2 (80.0-100.0) mmHg ABG HCO3 (22.0-26.0) meq/L ABG O2 Saturation (96.0-97.0) % ABG Base Excess (-2-2.0) A-a Gradient mmHg O2 Delivery Device Oxygen Flow Rate FiO2 (21.00-100.00) % Sodium (136-145) mEq/L Potassium (3.5-5.1) mEq/L Chloride (98-107) mEq/L Carbon Dioxide (21-32) mEq/L Anion Gap (5-15) BUN (7-18) mg/dL Creatinine (0.7-1.3) mg/dL Est Cr Clr Drug Dosing mL/min Estimated GFR (MDRD) (>60) mL/min BUN/Creatinine Ratio (14-18) Glucose (74-106) mg/dL Lactic Acid 0.9 (0.4-2.0) mmol/L Calcium (8.5-10.1) mg/dL Magnesium (1.8-2.4) mg/dl Ferritin 2097 H (26-388) ng/ml Total Bilirubin (0.2-1.0) mg/dL AST (15-37) U/L ALT (16-63) U/L Alkaline Phosphatase (46-116) U/L Lactate Dehydrogenase (85-227) U/L Troponin I (0.00-0.056) ng/mL C-Reactive Protein (<1.0) mg/dL NT-Pro-B Natriuret Pep 18 (0-125) pg/mL Total Protein (6.4-8.2) g/dl Albumin (3.4-5.0) g/dl Globulin gm/dL Albumin/Globulin Ratio (1-2) SARS-CoV-2 RNA (INGE) (NEGATIVE) 03/16/20 03/16/20 03/16/20 Range/Units 12:59 13:05 13:13 WBC (4.23-9.07) K/mm3 RBC (4.63-6.08) M/mm3 Hgb (13.7-17.5) gm/dl Hct (40.1-51.0) % MCV (79.0-92.2) fl MCH (25.7-32.2) pg MCHC (32.2-35.5) g/dl RDW Std Deviation (35.1-43.9) fL Plt Count (163-337) K/mm3 MPV (9.4-12.3) fl Neutrophils % (Manual) (40-60) % Band Neutrophils % (0-10) % Lymphocytes % (Manual) (20-40) % Atypical Lymphs % % Monocytes % (Manual) (2-10) % Eosinophils % (Manual) (0.8-7.0) % Basophils % (Manual) (0.2-1.2) Platelet Estimate Anisocytosis Macrocytosis RBC Morph Comment PT (9.7-12.0) SECONDS INR APTT (21.7-31.4) SECONDS D-Dimer, Quantitative (0.19-0.50) mg/L Puncture Site Rt radial ABG pH 7.48 H (7.35-7.45) ABG pCO2 33.7 L (35.0-45.0) mmHg ABG pO2 59.0 L (80.0-100.0) mmHg ABG HCO3 24.6 (22.0-26.0) meq/L ABG O2 Saturation 91.3 L (96.0-97.0) % ABG Base Excess 2.0 (-2-2.0) A-a Gradient 49 mmHg O2 Delivery Device Room air Oxygen Flow Rate 0.0 FiO2 21.00 (21.00-100.00) % Sodium (136-145) mEq/L Potassium (3.5-5.1) mEq/L Chloride (98-107) mEq/L Carbon Dioxide (21-32) mEq/L Anion Gap (5-15) BUN (7-18) mg/dL Creatinine (0.7-1.3) mg/dL Est Cr Clr Drug Dosing mL/min Estimated GFR (MDRD) (>60) mL/min BUN/Creatinine Ratio (14-18) Glucose (74-106) mg/dL Lactic Acid (0.4-2.0) mmol/L Calcium (8.5-10.1) mg/dL Magnesium (1.8-2.4) mg/dl Ferritin (26-388) ng/ml Total Bilirubin (0.2-1.0) mg/dL AST (15-37) U/L ALT (16-63) U/L Alkaline Phosphatase (46-116) U/L Lactate Dehydrogenase (85-227) U/L Troponin I (0.00-0.056) ng/mL C-Reactive Protein 5.8 H* (<1.0) mg/dL NT-Pro-B Natriuret Pep (0-125) pg/mL Total Protein (6.4-8.2) g/dl Albumin (3.4-5.0) g/dl Globulin gm/dL Albumin/Globulin Ratio (1-2) SARS-CoV-2 RNA (INGE) Positive H (NEGATIVE) Result Diagrams: 03/16/20 12:58 03/16/20 12:58 Kishan Results Last 24 hrs: Microbiology 03/16/20 12:59 Influenza Type A Antigen Screen - Final Nasopharyngeal Swab NEGATIVE INFLUENZA A VIRUS AG REFERENCE RANGE: NEGATIVE Influenza Type B Antigen Screen - Final NEGATIVE INFLUENZA B VIRUS AG REFERENCE RANGE: NEGATIVE Sepsis Event Note - Evaluation Sepsis Screening Result: No Definite Risk - Focused Exam Vital Signs: Vital Signs Temp Temp Pulse Pulse Resp BP BP 03/16/20 16:48 99.1 F 03/16/20 16:36 03/16/20 16:05 99.1 F 85 24 H 124/86 03/16/20 11:57 98.6 F 90 16 135/93 H Pulse Ox Pulse Ox 03/16/20 16:48 03/16/20 16:36 94 L 03/16/20 16:05 94 L 03/16/20 11:57 91 L - Problem List (1) Rheumatoid arthritis SNOMED Code(s): 06265267 ICD Code: M06.9 - RHEUMATOID ARTHRITIS, UNSPECIFIED Status: Acute Current Visit: Yes (2) COVID-19 SNOMED Code(s): 008523137 ICD Code: U07.1 - COVID-19 Status: Acute Current Visit: No (3) Hypoxia SNOMED Code(s): 847927345 ICD Code: R09.02 - HYPOXEMIA Status: Acute Current Visit: No Problem List Initiated/Reviewed/Updated: Yes Orders Last 24hrs: Active Orders 24 hr Category Date Time Status Admission Status [Patient Status] [ADT] Routine ADT 03/16/20 14:46 Active Oxygen Therapy [RC] ASDIRECTED Care 03/16/20 14:42 Active Oxygen Therapy [RC] PRN Care 03/16/20 17:07 Ordered Peripheral IV Care [RC] Q2H Care 03/16/20 12:44 Active Up ad Mindy [RC] ASDIRECTED Care 03/16/20 17:07 Ordered VTE/DVT Education [RC] PER UNIT ROUTINE Care 03/16/20 17:07 Ordered Vital Signs [RC] Q4H Care 03/16/20 17:07 Ordered Regular Diet [DIET] Diet 03/16/20 Dinner Ordered Chest 1V Frontal [CR] Stat Exams 03/16/20 12:39 Taken C-REACTIVE PROTEIN [CHEM] AM Lab 03/17/20 05:11 Ordered CBC WITH AUTO DIFF [HEME] AM Lab 03/17/20 05:11 Ordered CMP [COMPREHENSIVE METABOLIC PN,CMP] [CHEM] AM Lab 03/17/20 05:11 Ordered CULTURE BLOOD [BC] Stat Lab 03/16/20 13:08 Received CULTURE BLOOD [BC] Stat Lab 03/16/20 13:13 Received DD [D-DIMER QUANTITATIVE] [COAG] AM Lab 03/17/20 05:11 Ordered MAGNESIUM [CHEM] AM Lab 03/17/20 05:11 Ordered PHOSPHORUS [CHEM] AM Lab 03/17/20 05:11 Ordered Acetaminophen [TylenoL] Med 03/16/20 16:15 Active 650 mg PO Q4H PRN Benzocaine/Cetylpyrd/Menthol [Cepacol Sore Throat] Med 03/16/20 16:15 Active 1 lozenge MUCMEM Q3H PRN Enoxaparin [Lovenox] Med 03/17/20 09:00 Ordered 40 mg SUBCUT DAILY Folic Acid Med 03/17/20 09:00 Ordered 1 mg PO DAILY Ondansetron [Zofran] Med 03/16/20 17:07 Ordered 4 mg IV Q4H PRN Remdesivir (Eua) [Remdesivir (EUA)] 100 mg Med 03/17/20 17:15 Ordered Sodium Chloride 0.9% [Normal Saline] 100 ml IV Q24H Remdesivir (Eua) [Remdesivir (EUA)] 200 mg Med 03/16/20 17:11 Ordered Sodium Chloride 0.9% [Normal Saline] 250 ml IV ONETIME Sodium Chloride 0.9% [Saline Flush] Med 03/16/20 12:44 Active 10 ml FLUSH ASDIRECTED PRN dexAMETHasone Med 03/16/20 17:15 Ordered 6 mg PO Q24H Blood Culture x2 Reflex Set [OM.PC] Stat Oth 03/16/20 12:39 Ordered Isolation [COMM] Routine Oth 03/16/20 12:39 Ordered Peripheral IV Insertion Adult [OM.PC] Routine Oth 03/16/20 12:44 Ordered Resuscitation Status Routine Resus Stat 03/16/20 17:07 Ordered Medication Orders Acetaminophen (Tylenol) 650 mg PO Q4H PRN PRN Reason: Pain Last Admin: 03/16/20 16:48 Dose: 650 mg Documented by: RUKHSANA Benzocaine/Menthol (Cepacol Sore Throat) 1 lozenge MUCMEM Q3H PRN PRN Reason: Cough Last Admin: 03/16/20 16:51 Dose: 1 lozenge Documented by: RUKHSANA Dexamethasone (Dexamethasone) 6 mg PO Q24H [facility] Stop: 03/25/20 17:16 Enoxaparin Sodium (Lovenox) 40 mg SUBCUT DAILY [facility] Folic Acid (Folic Acid) 1 mg PO DAILY [facility] Remdesivir 200 mg/ Sodium (Chloride) 250 mls @ 250 mls/hr IV ONETIME ONE Stop: 03/16/20 17:12 Remdesivir 100 mg/ Sodium (Chloride) 100 mls @ 100 mls/hr IV Q24H [facility] Stop: 03/20/20 18:14 Ondansetron HCl (Zofran) 4 mg IV Q4H PRN PRN Reason: Nausea/Vomiting Sodium Chloride (Saline Flush) 10 ml FLUSH ASDIRECTED PRN PRN Reason: Keep Vein Open Last Admin: 03/16/20 13:12 Dose: 10 ml Documented by: TOMMY Assessment/Plan Comment:: Assessment COVID-19 with hypoxemia * 54-year-old male with rheumatoid arthritis symptomatic for just over 1 week presents to the emergency department with cough, myalgias, fevers, and chills. * WBC 5.06, D-dimer 0.52, troponin less than 0.017, lactate dehydrogenase 204, ferritin 2097, lactic acid 0.9 * Chest x-ray is normal without infiltrate or groundglass opacities. * Requiring 1 to 2 L nasal cannula to keep oxygen saturations above 90%. Rheumatoid arthritis * Currently on methotrexate and Enbrel * No significant joint involvement currently Plan * Admit to medical floor * Telemetry and continuous pulse ox * Remdesivir and dexamethasone * Discussed convalescent plasma and patient will consider this. * Hold Enbrel and methotrexate. Low likelihood of rheumatoid flare since patient will be on steroids. * FiO2 to keep SPO2 between 88 and 94% * Routine Covid labs in the morning * VTE prophylaxis with Lovenox * CODE STATUS full code * Length of stay minimum of 5 days secondary to treatment with remdesivir. - Mortality Measure Prognosis:: Good
[2020-03-16] MEDS: Dexamethasone 4 MG Tab PO SCH (18:11)
[2020-03-17] MEDS: Acetaminophen 325 MG Tab PO PRN ×2 (04:08→17:23)
[2020-03-17] MEDS: Enoxaparin 40 MG/0.4 ML Syringe SUBCUT SCH (10:11)
[2020-03-17] MEDS: Folic Acid 1 MG Tab PO SCH (10:11)
[2020-03-17] MEDS ORDERED: Sodium Chloride 0.9% 250 ML ONE (13:24)
[2020-03-17] MEDS ORDERED: Sodium Chloride 0.9% 250 ML IV SCH (13:30)
--- NOTE | 2020-03-17 16:38 | PCM.PN ---
- General Info Date of Service: 03/17/20 Admission Dx/Problem (Free Text): Admission Diagnosis/Problem Admission Diagnosis/Problem Hypoxia Subjective Update: Patient is doing well. His oxygen saturations are in the low to mid 90s on 1.5 L/min nasal cannula. Appetite is good. He is up in his room walking. - Review of Systems General: Reports: No Symptoms HEENT: Reports: No Symptoms Pulmonary: Reports: No Symptoms Cardiovascular: Reports: No Symptoms Gastrointestinal: Reports: No Symptoms Musculoskeletal: Reports: No Symptoms Neurological: Reports: No Symptoms Psychiatric: Reports: No Symptoms - Patient Data Vitals - Most Recent: Last Vital Signs Temp 98.2 F 03/17/20 15:15 Pulse 86 03/17/20 15:15 Resp 16 03/17/20 15:15 BP 124/97 H 03/17/20 15:15 Pulse Ox 94 L 03/17/20 15:15 Weight - Most Recent: 211 lb 1.6 oz I&O - Last 24 Hours: Intake & Output 03/17/20 03/17/20 03/17/20 06:59 14:59 22:59 Intake Total 9082 901 6066 Output Total 2250 1500 Balance -1100 370 -462 Lab Results Last 24 Hours: Laboratory Results - last 24 hr 03/16/20 03/16/20 03/17/20 Range/Units 12:58 13:05 05:23 WBC 2.53 L (4.23-9.07) K/mm3 RBC 4.49 L (4.63-6.08) M/mm3 Hgb 15.0 (13.7-17.5) gm/dl Hct 45.1 (40.1-51.0) % MCV 100.4 H (79.0-92.2) fl MCH 33.4 H (25.7-32.2) pg MCHC 33.3 (32.2-35.5) g/dl RDW Std Deviation 45.4 H (35.1-43.9) fL Plt Count 213 (163-337) K/mm3 MPV 9.9 (9.4-12.3) fl Neut % (Auto) 58.1 (34.0-67.9) % Lymph % (Auto) 26.9 (21.8-53.1) % [place] % (Auto) 14.6 H (5.3-12.2) % Eos % (Auto) 0 L (0.8-7.0) Baso % (Auto) 0.4 (0.1-1.2) % Neut # (Auto) 1.47 L (1.78-5.38) K/mm3 Lymph # (Auto) 0.68 L (1.32-3.57) K/mm3 [place] # (Auto) 0.37 (0.30-0.82) K/mm3 Eos # (Auto) 0.00 L (0.04-0.54) K/mm3 Baso # (Auto) 0.01 (0.01-0.08) K/mm3 Manual Slide Review Abnormal smear D-Dimer, Quantitative (0.19-0.50) mg/L Frantz Test Positive Sodium (136-145) mEq/L Potassium (3.5-5.1) mEq/L Chloride (98-107) mEq/L Carbon Dioxide (21-32) mEq/L Anion Gap (5-15) BUN (7-18) mg/dL Creatinine (0.7-1.3) mg/dL Est Cr Clr Drug Dosing mL/min Estimated GFR (MDRD) (>60) mL/min BUN/Creatinine Ratio (14-18) Glucose (74-106) mg/dL Calcium (8.5-10.1) mg/dL Phosphorus (2.6-4.7) mg/dL Magnesium (1.8-2.4) mg/dl Total Bilirubin (0.2-1.0) mg/dL AST (15-37) U/L ALT (16-63) U/L Alkaline Phosphatase (46-116) U/L C-Reactive Protein (<1.0) mg/dL Total Protein (6.4-8.2) g/dl Albumin (3.4-5.0) g/dl Globulin gm/dL Albumin/Globulin Ratio (1-2) Blood Type A POSITIVE 03/17/20 03/17/20 Range/Units 05:23 05:23 WBC (4.23-9.07) K/mm3 RBC (4.63-6.08) M/mm3 Hgb (13.7-17.5) gm/dl Hct (40.1-51.0) % MCV (79.0-92.2) fl MCH (25.7-32.2) pg MCHC (32.2-35.5) g/dl RDW Std Deviation (35.1-43.9) fL Plt Count (163-337) K/mm3 MPV (9.4-12.3) fl Neut % (Auto) (34.0-67.9) % Lymph % (Auto) (21.8-53.1) % [place] % (Auto) (5.3-12.2) % Eos % (Auto) (0.8-7.0) Baso % (Auto) (0.1-1.2) % Neut # (Auto) (1.78-5.38) K/mm3 Lymph # (Auto) (1.32-3.57) K/mm3 [place] # (Auto) (0.30-0.82) K/mm3 Eos # (Auto) (0.04-0.54) K/mm3 Baso # (Auto) (0.01-0.08) K/mm3 Manual Slide Review D-Dimer, Quantitative 0.46 (0.19-0.50) mg/L Frantz Test Sodium 134 L (136-145) mEq/L Potassium 4.5 (3.5-5.1) mEq/L Chloride 98 (98-107) mEq/L Carbon Dioxide 26 (21-32) mEq/L Anion Gap 14.5 (5-15) BUN 17 (7-18) mg/dL Creatinine 1.0 (0.7-1.3) mg/dL Est Cr Clr Drug Dosing 93.77 mL/min Estimated GFR (MDRD) > 60 (>60) mL/min BUN/Creatinine Ratio 17.0 (14-18) Glucose 126 H (74-106) mg/dL Calcium 8.8 (8.5-10.1) mg/dL Phosphorus 3.6 (2.6-4.7) mg/dL Magnesium 2.3 (1.8-2.4) mg/dl Total Bilirubin 0.6 (0.2-1.0) mg/dL AST 20 (15-37) U/L ALT 62 (16-63) U/L Alkaline Phosphatase 53 (46-116) U/L C-Reactive Protein 6.4 H* (<1.0) mg/dL Total Protein 8.0 (6.4-8.2) g/dl Albumin 3.4 (3.4-5.0) g/dl Globulin 4.6 gm/dL Albumin/Globulin Ratio 0.7 L (1-2) Blood Type Kishan Results Last 24 Hours: Microbiology 03/16/20 13:08 Aerobic Blood Culture - Preliminary Blood - Venous - Lab Draw NO GROWTH AFTER 1 DAY Anaerobic Blood Culture - Preliminary NO GROWTH AFTER 1 DAY 03/16/20 13:13 Aerobic Blood Culture - Preliminary Blood - Venous NO GROWTH AFTER 1 DAY Anaerobic Blood Culture - Preliminary NO GROWTH AFTER 1 DAY 03/16/20 12:59 Influenza Type A Antigen Screen - Final Nasopharyngeal Swab NEGATIVE INFLUENZA A VIRUS AG REFERENCE RANGE: NEGATIVE Influenza Type B Antigen Screen - Final NEGATIVE INFLUENZA B VIRUS AG REFERENCE RANGE: NEGATIVE Med Orders - Current: Current Medications Acetaminophen (Tylenol) 650 mg PO Q4H PRN PRN Reason: Pain Last Admin: 03/17/20 04:08 Dose: 650 mg Documented by: Benzocaine/Menthol (Cepacol Sore Throat) 1 lozenge MUCMEM Q3H PRN PRN Reason: Cough Last Admin: 03/16/20 21:15 Dose: 1 lozenge Documented by: Dexamethasone (Dexamethasone) 6 mg PO Q24H [facility] Stop: 03/25/20 18:01 Last Admin: 03/16/20 18:11 Dose: 6 mg Documented by: Enoxaparin Sodium (Lovenox) 40 mg SUBCUT DAILY [facility] Last Admin: 03/17/20 10:11 Dose: 40 mg Documented by: Folic Acid (Folic Acid) 1 mg PO DAILY [facility] Last Admin: 03/17/20 10:11 Dose: 1 mg Documented by: Remdesivir 100 mg/ Sodium (Chloride) 100 mls @ 100 mls/hr IV Q24H [facility] Stop: 03/20/20 18:59 Sodium Chloride (Normal Saline) 250 mls @ 125 mls/hr IV ASDIRECTED [facility] Last Admin: 03/17/20 13:59 Dose: 125 mls/hr Documented by: Ondansetron HCl (Zofran) 4 mg IV Q4H PRN PRN Reason: Nausea/Vomiting Sodium Chloride (Saline Flush) 10 ml FLUSH ASDIRECTED PRN PRN Reason: Keep Vein Open Last Admin: 03/16/20 13:12 Dose: 10 ml Documented by: Discontinued Medications Remdesivir 200 mg/ Sodium (Chloride) 250 mls @ 250 mls/hr IV ONETIME ONE Stop: 03/16/20 17:12 Last Admin: 03/16/20 18:13 Dose: Not Given Documented by: Remdesivir 200 mg/ Sodium (Chloride) 250 mls @ 250 mls/hr IV ONETIME ONE Stop: 03/16/20 18:59 Last Admin: 03/16/20 18:07 Dose: 250 mls/hr Documented by: Sodium Chloride (Normal Saline) Confirm Administered Dose 250 mls @ as directed .ROUTE .STK-MED ONE Stop: 03/17/20 13:25 Last Admin: 03/17/20 13:59 Dose: Not Given Documented by: - Exam Quality Assessment: Supplemental Oxygen General: Alert, Oriented HEENT: Pupils Equal, Mucous Membr. Moist/[place] Neck: Supple Lungs: Normal Respiratory Effort, Rales (Minimal bibasilar) Cardiovascular: Regular Rate, Regular Rhythm GI/Abdominal Exam: Normal Bowel Sounds, Soft, Non-Tender, No Distention Extremities: Normal Inspection, Normal Range of Motion, Non-Tender, No Pedal Edema, Normal Capillary Refill Skin: Warm, Dry, Intact Psy/Mental Status: Alert, Normal Affect, Normal Mood Sepsis Event Note - Evaluation Sepsis Screening Result: No Definite Risk - Focused Exam Vital Signs: Vital Signs Temp Pulse Pulse Resp BP BP Pulse Ox 03/17/20 15:15 98.2 F 86 16 124/97 H 94 L 03/17/20 15:14 98.2 F 67 16 124/97 H 03/17/20 15:00 99.5 F 76 14 116/78 96 03/17/20 14:59 99.5 F 76 14 116/78 03/17/20 14:44 99.2 F 71 14 118/74 03/17/20 14:41 99.1 F 71 14 118/74 90 L 03/17/20 14:28 99.2 F 67 20 122/77 03/17/20 14:27 99.1 F 67 20 122/77 92 L 03/17/20 14:12 99.0 F 65 14 133/91 H 03/17/20 14:11 99.0 F 65 14 133/91 H 92 L 03/17/20 13:55 98.7 F 66 18 131/70 03/17/20 13:54 98.8 F 66 18 131/70 96 03/17/20 12:27 98.8 F 73 16 127/78 91 L 03/17/20 11:45 03/17/20 07:35 98.2 F 76 16 122/87 92 L Pulse Ox 03/17/20 15:15 03/17/20 15:14 03/17/20 15:00 03/17/20 14:59 03/17/20 14:44 03/17/20 14:41 03/17/20 14:28 03/17/20 14:27 03/17/20 14:12 03/17/20 14:11 03/17/20 13:55 03/17/20 13:54 03/17/20 12:27 03/17/20 11:45 92 L 03/17/20 07:35 - Problem List & Annotations (1) Rheumatoid arthritis SNOMED Code(s): 88929424 Code(s): M06.9 - RHEUMATOID ARTHRITIS, UNSPECIFIED Status: Acute Current Visit: Yes (2) COVID-19 SNOMED Code(s): 299190798 Code(s): U07.1 - COVID-19 Status: Acute Current Visit: No (3) Hypoxia SNOMED Code(s): 225218477 Code(s): R09.02 - HYPOXEMIA Status: Acute Current Visit: No - Problem List Review Problem List Initiated/Reviewed/Updated: Yes - My Orders Last 24 Hours: My Active Orders 03/16/20 16:15 Acetaminophen [TylenoL] 650 mg PO Q4H PRN Benzocaine/Cetylpyrd/Menthol [Cepacol Sore Throat] 1 lozenge MUCMEM Q3H PRN 03/16/20 Dinner Regular Diet [DIET] 03/16/20 17:07 Oxygen Therapy [RC] PRN Up ad Mindy [RC] QSHIFT VTE/DVT Education [RC] DAILY Vital Signs [RC] Q4HR Ondansetron [Zofran] 4 mg IV Q4H PRN Resuscitation Status Routine 03/16/20 18:00 dexAMETHasone 6 mg PO Q24H 03/16/20 20:38 Verify Patient Consent Obtain [RC] ASDIRECTED Transfuse Fresh Frozen Plasma [COMM] Routine 03/17/20 09:00 Enoxaparin [Lovenox] 40 mg SUBCUT DAILY Folic Acid 1 mg PO DAILY 03/17/20 13:30 Sodium Chloride 0.9% [Normal Saline] 250 ml IV ASDIRECTED 03/17/20 18:00 Remdesivir (Eua) [Remdesivir (EUA)] 100 mg Sodium Chloride 0.9% [Normal Saline] 100 ml IV Q24H - Plan Plan:: Assessment COVID-19 with hypoxemia * 54-year-old male with rheumatoid arthritis symptomatic for just over 1 week presents to the emergency department with cough, myalgias, fevers, and chills. * WBC 2.53, CRP 6.4, D-dimer 0.46 * Chest x-ray is normal without infiltrate or groundglass opacities. * Requiring 1 to 2 L nasal cannula to keep oxygen saturations above 90%. Rheumatoid arthritis * Currently on methotrexate and Enbrel; held during hospitalization * Currently on dexamethasone Plan * Admit to medical floor * Telemetry and continuous pulse ox * Continue remdesivir and dexamethasone * Patient would like to get 2 units of convalescent plasma. * I spoke with Delvin to provide information about convalescent plasma. I offered the "fax sheet for patients and parents/caregivers, for COVID-19 convalescent plasma to read and review. I stated that therapy has been approved by an emergency use authorization process and has not fully been FDA reviewed or approved. I shared potential risks from the therapy including transmission of blood borne pathogen such as HIV and hepatitis C, allergic and transfusion related reactions, post transfusion purpura. Additionally theoretical risks include a phenomenon called antibodydependent enhancement of infection such as is seen in dengue or attenuation of an immune response that may make patients more susceptible to reinfection. * FiO2 to keep SPO2 between 88 and 94%. Wean oxygen as tolerated * No labs in the morning * VTE prophylaxis with Lovenox * CODE STATUS full code * Length of stay minimum of 5 days secondary to treatment with remdesivir.
[2020-03-17] MEDS: Dexamethasone 4 MG Tab PO SCH (17:23)
[2020-03-17] MEDS ORDERED: REMDESIVIR 100 MG in Sodium Chloride 0.9% 100 ML IV SCH (18:00)
--- NOTE | 2020-03-18 10:07 | CR ---
PROCEDURE INFORMATION: Exam: XR Chest, 1 View Exam date and time: 03/16/2020 12:32 PM Age: 54 years old Clinical indication: Other: Hypoxia, suspect covid TECHNIQUE: Imaging protocol: XR of the chest Views: 1 view. COMPARISON: DX Chest 2V 07/02/2017 11:39 AM FINDINGS: Lungs: Unremarkable. No consolidation. Pleural space: Unremarkable. No pleural effusion. No pneumothorax. Heart/Mediastinum: Unremarkable. No cardiomegaly. Bones/joints: Unremarkable. IMPRESSION: No acute findings. Thank you for allowing us to participate in the care of your patient. Dictated and Authenticated by: Aman Bruner MD 03/16/2020 2:06 PM Central Time ([place] & [place]) DON
[2020-03-18] MEDS: Enoxaparin 40 MG/0.4 ML Syringe SUBCUT SCH (10:38)
[2020-03-18] MEDS: Folic Acid 1 MG Tab PO SCH (10:38)
--- NOTE | 2020-03-18 12:13 | PCM.PN ---
- General Info Date of Service: 03/18/20 Admission Dx/Problem (Free Text): Admission Diagnosis/Problem Admission Diagnosis/Problem Hypoxia Subjective Update: Patient states he is feeling well. He is on room air. Functional Status: Reports: Pain Controlled, Tolerating Diet, Ambulating, Urinating, Incentive Spirometry - Review of Systems General: Reports: No Symptoms HEENT: Reports: No Symptoms Pulmonary: Reports: Shortness of Breath, Cough. Denies: Sputum Cardiovascular: Reports: No Symptoms Gastrointestinal: Reports: No Symptoms Genitourinary: Reports: No Symptoms Musculoskeletal: Reports: No Symptoms Skin: Reports: No Symptoms Neurological: Reports: No Symptoms Psychiatric: Reports: No Symptoms - Patient Data Vitals - Most Recent: Last Vital Signs Temp 98.2 F 03/18/20 08:54 Pulse 55 L 03/18/20 08:54 Resp 12 03/18/20 08:54 BP 121/74 03/18/20 08:54 Pulse Ox 91 L 03/18/20 08:54 Weight - Most Recent: 211 lb 7 oz I&O - Last 24 Hours: Intake & Output 03/17/20 03/18/20 03/18/20 22:59 06:59 14:59 Intake Total 1518 500 0 Output Total 1500 1700 Balance 18 -1200 0 Lab Results Last 24 Hours: Laboratory Results - last 24 hr 03/16/20 03/18/20 03/18/20 Range/Units 12:58 05:14 05:14 WBC (4.23-9.07) K/mm3 RBC (4.63-6.08) M/mm3 Hgb (13.7-17.5) gm/dl Hct (40.1-51.0) % MCV (79.0-92.2) fl MCH (25.7-32.2) pg MCHC (32.2-35.5) g/dl RDW Std Deviation (35.1-43.9) fL Plt Count (163-337) K/mm3 MPV (9.4-12.3) fl Neut % (Auto) (34.0-67.9) % Lymph % (Auto) (21.8-53.1) % Giles % (Auto) (5.3-12.2) % Eos % (Auto) (0.8-7.0) Baso % (Auto) (0.1-1.2) % Neut # (Auto) (1.78-5.38) K/mm3 Lymph # (Auto) (1.32-3.57) K/mm3 Giles # (Auto) (0.30-0.82) K/mm3 Eos # (Auto) (0.04-0.54) K/mm3 Baso # (Auto) (0.01-0.08) K/mm3 D-Dimer, Quantitative 0.34 (0.19-0.50) mg/L Sodium 136 (136-145) mEq/L Potassium 4.6 (3.5-5.1) mEq/L Chloride 100 (98-107) mEq/L Carbon Dioxide 26 (21-32) mEq/L Anion Gap 14.6 (5-15) BUN 16 (7-18) mg/dL Creatinine 0.8 (0.7-1.3) mg/dL Est Cr Clr Drug Dosing 117.21 mL/min Estimated GFR (MDRD) > 60 (>60) mL/min BUN/Creatinine Ratio 20.0 H (14-18) Glucose 127 H (74-106) mg/dL Calcium 9.4 (8.5-10.1) mg/dL Phosphorus 3.6 (2.6-4.7) mg/dL Magnesium 2.2 (1.8-2.4) mg/dl Total Bilirubin 0.5 (0.2-1.0) mg/dL AST 20 (15-37) U/L ALT 63 (16-63) U/L Alkaline Phosphatase 54 (46-116) U/L C-Reactive Protein 3.3 H* (<1.0) mg/dL Total Protein 7.8 (6.4-8.2) g/dl Albumin 3.5 (3.4-5.0) g/dl Globulin 4.3 gm/dL Albumin/Globulin Ratio 0.8 L (1-2) Blood Type A POSITIVE 03/18/20 Range/Units 05:44 WBC 4.29 (4.23-9.07) K/mm3 RBC 4.40 L (4.63-6.08) M/mm3 Hgb 14.6 (13.7-17.5) gm/dl Hct 43.7 (40.1-51.0) % MCV 99.3 H (79.0-92.2) fl MCH 33.2 H (25.7-32.2) pg MCHC 33.4 (32.2-35.5) g/dl RDW Std Deviation 43.7 (35.1-43.9) fL Plt Count 230 (163-337) K/mm3 MPV 9.7 (9.4-12.3) fl Neut % (Auto) 65.3 (34.0-67.9) % Lymph % (Auto) 24.0 (21.8-53.1) % Giles % (Auto) 10.3 (5.3-12.2) % Eos % (Auto) 0 L (0.8-7.0) Baso % (Auto) 0.2 (0.1-1.2) % Neut # (Auto) 2.80 (1.78-5.38) K/mm3 Lymph # (Auto) 1.03 L (1.32-3.57) K/mm3 Giles # (Auto) 0.44 (0.30-0.82) K/mm3 Eos # (Auto) 0.00 L (0.04-0.54) K/mm3 Baso # (Auto) 0.01 (0.01-0.08) K/mm3 D-Dimer, Quantitative (0.19-0.50) mg/L Sodium (136-145) mEq/L Potassium (3.5-5.1) mEq/L Chloride (98-107) mEq/L Carbon Dioxide (21-32) mEq/L Anion Gap (5-15) BUN (7-18) mg/dL Creatinine (0.7-1.3) mg/dL Est Cr Clr Drug Dosing mL/min Estimated GFR (MDRD) (>60) mL/min BUN/Creatinine Ratio (14-18) Glucose (74-106) mg/dL Calcium (8.5-10.1) mg/dL Phosphorus (2.6-4.7) mg/dL Magnesium (1.8-2.4) mg/dl Total Bilirubin (0.2-1.0) mg/dL AST (15-37) U/L ALT (16-63) U/L Alkaline Phosphatase (46-116) U/L C-Reactive Protein (<1.0) mg/dL Total Protein (6.4-8.2) g/dl Albumin (3.4-5.0) g/dl Globulin gm/dL Albumin/Globulin Ratio (1-2) Blood Type Kishan Results Last 24 Hours: Microbiology 03/16/20 13:08 Aerobic Blood Culture - Preliminary Blood - Venous - Lab Draw NO GROWTH AFTER 1 DAY Anaerobic Blood Culture - Preliminary NO GROWTH AFTER 1 DAY 03/16/20 13:13 Aerobic Blood Culture - Preliminary Blood - Venous NO GROWTH AFTER 1 DAY Anaerobic Blood Culture - Preliminary NO GROWTH AFTER 1 DAY Med Orders - Current: Current Medications Acetaminophen (Tylenol) 650 mg PO Q4H PRN PRN Reason: Pain Last Admin: 03/17/20 17:23 Dose: 650 mg Documented by: Benzocaine/Menthol (Cepacol Sore Throat) 1 lozenge MUCMEM Q3H PRN PRN Reason: Cough Last Admin: 03/16/20 21:15 Dose: 1 lozenge Documented by: Dexamethasone (Dexamethasone) 6 mg PO Q24H [facility] Stop: 03/25/20 18:01 Last Admin: 03/17/20 17:23 Dose: 6 mg Documented by: Enoxaparin Sodium (Lovenox) 40 mg SUBCUT DAILY [facility] Last Admin: 03/18/20 10:38 Dose: 40 mg Documented by: Folic Acid (Folic Acid) 1 mg PO DAILY [facility] Last Admin: 03/18/20 10:38 Dose: 1 mg Documented by: Remdesivir 100 mg/ Sodium (Chloride) 100 mls @ 100 mls/hr IV ONETIME ONE Stop: 03/18/20 17:59 Remdesivir 100 mg/ Sodium (Chloride) 100 mls @ 100 mls/hr IV ONETIME ONE Stop: 03/19/20 16:59 Remdesivir 100 mg/ Sodium (Chloride) 100 mls @ 100 mls/hr IV ONETIME ONE Stop: 03/20/20 15:59 Ondansetron HCl (Zofran) 4 mg IV Q4H PRN PRN Reason: Nausea/Vomiting Sodium Chloride (Saline Flush) 10 ml FLUSH ASDIRECTED PRN PRN Reason: Keep Vein Open Last Admin: 03/16/20 13:12 Dose: 10 ml Documented by: Discontinued Medications Remdesivir 200 mg/ Sodium (Chloride) 250 mls @ 250 mls/hr IV ONETIME ONE Stop: 03/16/20 17:12 Last Admin: 03/16/20 18:13 Dose: Not Given Documented by: Remdesivir 100 mg/ Sodium (Chloride) 100 mls @ 100 mls/hr IV Q24H [facility] Stop: 03/20/20 18:59 Last Admin: 03/17/20 17:23 Dose: 100 mls/hr Documented by: Remdesivir 200 mg/ Sodium (Chloride) 250 mls @ 250 mls/hr IV ONETIME ONE Stop: 03/16/20 18:59 Last Admin: 03/16/20 18:07 Dose: 250 mls/hr Documented by: Sodium Chloride (Normal Saline) 250 mls @ 125 mls/hr IV ASDIRECTED [facility] Last Admin: 03/17/20 13:59 Dose: 125 mls/hr Documented by: Sodium Chloride (Normal Saline) Confirm Administered Dose 250 mls @ as directed .ROUTE .STK-MED ONE Stop: 03/17/20 13:25 Last Admin: 03/17/20 13:59 Dose: Not Given Documented by: - Exam Quality Assessment: DVT Prophylaxis (Lovenox). No: Supplemental Oxygen General: Alert, Oriented, Cooperative, No Acute Distress HEENT: Pupils Equal, Pupils Reactive, Mucous Membr. Moist/[place] Neck: Supple, Trachea Midline. No: Lymphadenopathy Lungs: Normal Respiratory Effort, Decreased Breath Sounds Cardiovascular: Regular Rate, Regular Rhythm, No Murmurs GI/Abdominal Exam: Normal Bowel Sounds, Soft, Non-Tender, No Distention (Male) Exam: Deferred Back Exam: Normal Inspection, Full Range of Motion Extremities: Normal Inspection, Normal Range of Motion, Non-Tender, No Pedal Edema, Normal Capillary Refill Peripheral Pulses: 2+: Radial (L), Radial (R), Dorsalis Pedis (L), Dorsalis Pedis (R) Skin: Warm, Dry, Intact Neurological: No New Focal Deficit Psy/Mental Status: Alert, Normal Affect, Normal Mood Sepsis Event Note - Evaluation Sepsis Screening Result: No Definite Risk - Focused Exam Vital Signs: Vital Signs Temp Pulse Pulse Resp BP Pulse Ox Pulse Ox 03/18/20 08:54 98.2 F 55 L 12 121/74 91 L 03/18/20 06:15 95 03/18/20 03:03 75 03/18/20 03:02 98.1 F 49 L 15 116/68 92 L - Problem List & Annotations (1) Rheumatoid arthritis SNOMED Code(s): 23388161 Code(s): M06.9 - RHEUMATOID ARTHRITIS, UNSPECIFIED Status: Chronic Priority: High Current Visit: Yes Qualifiers: Rheumatoid arthritis location: unspecified site Rheumatoid factor presence: unspecified presence Qualified Code(s): M06.9 - Rheumatoid arthritis, unspecified (2) COVID-19 SNOMED Code(s): 786181778 Code(s): U07.1 - COVID-19 Status: Acute Priority: High Current Visit: Yes (3) Hypoxia SNOMED Code(s): 097873757 Code(s): R09.02 - HYPOXEMIA Status: Acute Priority: High Current Visit: Yes - Problem List Review Problem List Initiated/Reviewed/Updated: Yes - Assessment Assessment:: 03/18/20 COVID-19 with hypoxemia * Currently on remdesivir. * On room air * Labs reveal: D-dimer 0.34 C-reactive protein 3.3 Rheumatoid arthritis * Currently on methotrexate and Enbrel; held during hospitalization * Currently on dexamethasone Lovenox for DVT prophylaxis. - Plan Plan:: 03/18/20 * Telemetry and continuous pulse ox * Continue remdesivir and dexamethasone * FiO2 to keep SPO2 between 88 and 94%. Wean oxygen as tolerated * No labs in the morning * VTE prophylaxis with Lovenox * CODE STATUS full code * Length of stay minimum of 5 days secondary to treatment with remdesivir.
[2020-03-18] MEDS ORDERED: REMDESIVIR 100 MG in Sodium Chloride 0.9% 100 ML IV ONE (17:00)
[2020-03-18] MEDS ORDERED: Dexamethasone 4 MG Tab PO ONE (17:00)
[2020-03-19] MEDS: Enoxaparin 40 MG/0.4 ML Syringe SUBCUT SCH (09:11)
[2020-03-19] MEDS: Folic Acid 1 MG Tab PO SCH (09:11)
[2020-03-19] MEDS ORDERED: REMDESIVIR 100 MG in Sodium Chloride 0.9% 100 ML IV ONE ×2 (13:00→16:00)
--- NOTE | 2020-03-19 13:01 | PCM.DCSUM1 ---
Discharge Summary - Hospital Course HPI Initial Comments: 54-year-old male who developed a cough last 03/08/2020, when he was deer hunting and then over the last few days lost his sense of smell and developed low-grade fever in the low 100s and cough. Patient states that he has been coughing hard enough to be short of breath and even lightheaded/dizzy. He has diffuse body aches and chills. When he presented to the emergency department his oxygen saturations were between 88 and 91% on room air. Patient does have an history of rheumatoid arthritis diagnosed 6 or 7 years ago and is on methotrexate and Enbrel. Diagnosis: Stroke: No - Discharge Data Discharge Date: 03/19/20 (Admit date: 03/16/20) Discharge Disposition: Home, Self-Care 01 Condition: Good - Referral to Home Health Primary Care Physician: PCP None - Discharge Diagnosis/Problem(s) (1) Rheumatoid arthritis SNOMED Code(s): 61337629 ICD Code: M06.9 - RHEUMATOID ARTHRITIS, UNSPECIFIED Status: Chronic Priority: High Current Visit: Yes Qualifiers: Rheumatoid arthritis location: unspecified site Rheumatoid factor presence: unspecified presence Qualified Code(s): M06.9 - Rheumatoid arthritis, unspecified (2) COVID-19 SNOMED Code(s): 032770038 ICD Code: U07.1 - COVID-19 Status: Acute Priority: High Current Visit: Yes (3) Hypoxia SNOMED Code(s): 166462391 ICD Code: R09.02 - HYPOXEMIA Status: Acute Priority: High Current Visit: Yes - Patient Summary/Data Hospital Course: Assessment COVID-19 with hypoxemia * 54-year-old male with rheumatoid arthritis symptomatic for just over 1 week presents to the emergency department with cough, myalgias, fevers, and chills. * WBC 2.53, CRP 6.4, D-dimer 0.46 * Chest x-ray is normal without infiltrate or groundglass opacities. * Requiring 1 to 2 L nasal cannula to keep oxygen saturations above 90%. Rheumatoid arthritis * Currently on methotrexate and Enbrel; held during hospitalization * Currently on dexamethasone Plan * Admit to medical floor * Telemetry and continuous pulse ox * Continue remdesivir and dexamethasone * Patient would like to get 2 units of convalescent plasma. * I spoke with Delvin to provide information about convalescent plasma. I offered the "fax sheet for patients and parents/caregivers, for COVID-19 convalescent plasma to read and review. I stated that therapy has been approved by an emergency use authorization process and has not fully been FDA reviewed or approved. I shared potential risks from the therapy including transmission of blood borne pathogen such as HIV and hepatitis C, allergic and transfusion related reactions, post transfusion purpura. Additionally theoretical risks include a phenomenon called antibodydependent enhancement of infection such as is seen in dengue or attenuation of an immune response that may make patients more susceptible to reinfection. * FiO2 to keep SPO2 between 88 and 94%. Wean oxygen as tolerated * No labs in the morning * VTE prophylaxis with Lovenox * CODE STATUS full code * Length of stay minimum of 5 days secondary to treatment with remdesivir. 03/18/20 COVID-19 with hypoxemia * Currently on remdesivir. * On room air * Labs reveal: D-dimer 0.34 C-reactive protein 3.3 Rheumatoid arthritis * Currently on methotrexate and Enbrel; held during hospitalization * Currently on dexamethasone Lovenox for DVT prophylaxis. - Plan Plan:: 03/18/20 * Telemetry and continuous pulse ox * Continue remdesivir and dexamethasone * FiO2 to keep SPO2 between 88 and 94%. Wean oxygen as tolerated * No labs in the morning * VTE prophylaxis with Lovenox * CODE STATUS full code * Length of stay minimum of 5 days secondary to treatment with remdesivir. 03/19/20 * Patient is on room air. * He states that he will stay for today's dose of remdesivir and then he would like to be discharged to home. * Denies a cough or shortness of breath. * We will discharge him to home. * Will not continue dexamethasone on discharge. * He is to follow-up with his primary care provider in 1 week. Until that time he should quarantine. - Patient Instructions Diet: Usual Diet as Tolerated Activity: As Tolerated Other/Special Instructions: May discharge to home. Follow-up with your primary care physician in 1 week. Should your condition worsen or change follow-up with your primary care physician or return to the emergency department. - Discharge Plan *PRESCRIPTION DRUG MONITORING PROGRAM REVIEWED*: No *COPY OF PRESCRIPTION DRUG MONITORING REPORT IN PATIENT JUANCARLOS: No Home Medications: Home Meds Folic Acid 1 mg PO BEDTIME 09/06/16 [History] Etanercept [Enbrel] 0 mg INJECT WEEKLY 02/12/18 [History] metHOTREXate sodium [Methotrexate] 6 tab PO WEEKLY 04/02/19 [History] Oxygen Therapy Mode: Room Air Patient Handouts: COVID-19, Sepsis, Diagnosis, Adult, COVID-19: How to Protect Yourself and Others - CDC, Infection Prevention in the Home Forms: ED Department Discharge Referrals: PCP,None [Primary Care Provider] - - Discharge Summary/Plan Comment DC Time >30 min.: No - General Info Date of Service: 03/19/20 Admission Dx/Problem (Free Text: Admission Diagnosis/Problem Admission Diagnosis/Problem Hypoxia Functional Status: Reports: Pain Controlled, Tolerating Diet, Ambulating, Urinating, Incentive Spirometry - Review of Systems General: Reports: No Symptoms HEENT: Reports: No Symptoms Pulmonary: Reports: No Symptoms Cardiovascular: Reports: No Symptoms Gastrointestinal: Reports: No Symptoms Genitourinary: Reports: No Symptoms Musculoskeletal: Reports: No Symptoms Skin: Reports: No Symptoms Neurological: Reports: No Symptoms Psychiatric: Reports: No Symptoms - Patient Data Vitals - Most Recent: Last Vital Signs Temp 97.9 F 03/19/20 08:08 Pulse 64 03/19/20 08:08 Resp 20 03/19/20 08:08 BP 124/80 03/19/20 08:08 Pulse Ox 93 L 03/19/20 08:08 Weight - Most Recent: 210 lb 14.4 oz I&O - Last 24 hours: Intake & Output 03/18/20 03/19/20 03/19/20 22:59 06:59 14:59 Intake Total 1080 900 0 Output Total 800 1850 Balance 280 -950 0 IRMA Results - Last 24 hrs: Microbiology 03/16/20 13:08 Aerobic Blood Culture - Preliminary Blood - Venous - Lab Draw NO GROWTH AFTER 2 DAYS Anaerobic Blood Culture - Preliminary NO GROWTH AFTER 2 DAYS 03/16/20 13:13 Aerobic Blood Culture - Preliminary Blood - Venous NO GROWTH AFTER 2 DAYS Anaerobic Blood Culture - Preliminary NO GROWTH AFTER 2 DAYS Med Orders - Current: Current Medications Acetaminophen (Tylenol) 650 mg PO Q4H PRN PRN Reason: Pain Last Admin: 03/17/20 17:23 Dose: 650 mg Documented by: Benzocaine/Menthol (Cepacol Sore Throat) 1 lozenge MUCMEM Q3H PRN PRN Reason: Cough Last Admin: 03/16/20 21:15 Dose: 1 lozenge Documented by: Dexamethasone (Dexamethasone) 6 mg PO ONETIME ONE Stop: 03/19/20 16:01 Dexamethasone (Dexamethasone) 6 mg PO DAILY@1500 [facility] Stop: 03/25/20 16:00 Enoxaparin Sodium (Lovenox) 40 mg SUBCUT DAILY [facility] Last Admin: 03/19/20 09:11 Dose: 40 mg Documented by: Folic Acid (Folic Acid) 1 mg PO DAILY [facility] Last Admin: 03/19/20 09:11 Dose: 1 mg Documented by: Remdesivir 100 mg/ Sodium (Chloride) 100 mls @ 100 mls/hr IV ONETIME ONE Stop: 03/20/20 12:59 Remdesivir 100 mg/ Sodium (Chloride) 100 mls @ 100 mls/hr IV ONETIME ONE Stop: 03/19/20 13:59 Ondansetron HCl (Zofran) 4 mg IV Q4H PRN PRN Reason: Nausea/Vomiting Sodium Chloride (Saline Flush) 10 ml FLUSH ASDIRECTED PRN PRN Reason: Keep Vein Open Last Admin: 03/16/20 13:12 Dose: 10 ml Documented by: Discontinued Medications Dexamethasone (Dexamethasone) 6 mg PO Q24H [facility] Stop: 03/25/20 18:01 Last Admin: 03/17/20 17:23 Dose: 6 mg Documented by: Dexamethasone (Dexamethasone) 6 mg PO ONETIME ONE Stop: 03/18/20 17:01 Last Admin: 03/18/20 16:02 Dose: 6 mg Documented by: Remdesivir 200 mg/ Sodium (Chloride) 250 mls @ 250 mls/hr IV ONETIME ONE Stop: 03/16/20 17:12 Last Admin: 03/16/20 18:13 Dose: Not Given Documented by: Remdesivir 100 mg/ Sodium (Chloride) 100 mls @ 100 mls/hr IV Q24H [facility] Stop: 03/20/20 18:59 Last Admin: 03/17/20 17:23 Dose: 100 mls/hr Documented by: Remdesivir 200 mg/ Sodium (Chloride) 250 mls @ 250 mls/hr IV ONETIME ONE Stop: 03/16/20 18:59 Last Admin: 03/16/20 18:07 Dose: 250 mls/hr Documented by: Sodium Chloride (Normal Saline) 250 mls @ 125 mls/hr IV ASDIRECTED [facility] Last Admin: 03/17/20 13:59 Dose: 125 mls/hr Documented by: Sodium Chloride (Normal Saline) Confirm Administered Dose 250 mls @ as directed .ROUTE .STK-MED ONE Stop: 03/17/20 13:25 Last Admin: 03/17/20 13:59 Dose: Not Given Documented by: Remdesivir 100 mg/ Sodium (Chloride) 100 mls @ 100 mls/hr IV ONETIME ONE Stop: 03/18/20 17:59 Last Admin: 03/18/20 16:03 Dose: 100 mls/hr Documented by: Remdesivir 100 mg/ Sodium (Chloride) 100 mls @ 100 mls/hr IV ONETIME ONE Stop: 03/19/20 16:59 - Exam Quality Assessment: Reports: DVT Prophylaxis (Lovenox). Denies: Supplemental Oxygen General: Reports: Alert, Oriented, Cooperative, No Acute Distress HEENT: Reports: Pupils Equal, Pupils Reactive, Mucous Membr. Moist/[place] Neck: Reports: Supple, Trachea Midline. Denies: Lymphadenopathy Lungs: Reports: Clear to Auscultation, Normal Respiratory Effort Cardiovascular: Reports: Regular Rate, Regular Rhythm, No Murmurs GI/Abdominal Exam: Normal Bowel Sounds, Soft, Non-Tender, No Distention (Male) Exam: Deferred Rectal (Males) Exam: Deferred Back Exam: Reports: Normal Inspection, Full Range of Motion Extremities: Normal Inspection, Normal Range of Motion, Non-Tender, No Pedal Edema, Normal Capillary Refill Skin: Reports: Warm, Dry, Intact Neurological: Reports: No New Focal Deficit Psy/Mental Status: Reports: Alert, Normal Affect, Normal Mood
[2020-03-19 13:21] VITALS: BP 123/89; PULSE 56
[2020-03-19] MEDS ORDERED: Dexamethasone 4 MG Tab PO ONE (16:00)
[2020-03-20] MEDS ORDERED: REMDESIVIR 100 MG in Sodium Chloride 0.9% 100 ML IV ONE (12:00)
[2020-03-20] MEDS ORDERED: Dexamethasone 4 MG Tab PO SCH (15:00)
== END 2020-03-19 14:25 | disposition home or self-care (01) | DRG 137 ==
LOC: JD.ED 11:43 → JD.MS 14:46
PROVIDERS: ADMIT Family Medicine; ATTEND Family Medicine
PROC: XW033E5 Introduction of Remdesivir Anti-infective into Peripheral Vein, Percutaneous Approach, New Technology Group 5 (ICD-10-PCS; principal; 2020-03-16)
PROC: XW13325 Transfusion of Convalescent Plasma (Nonautologous) into Peripheral Vein, Percutaneous Approach, New Technology Group 5 (ICD-10-PCS; 2020-03-16)
PROC: 8E0ZXY6 Isolation (ICD-10-PCS; 2020-03-16)
DX: U07.1 COVID-19 (principal); M06.9 Rheumatoid arthritis, unspecified; R79.89 Other specified abnormal findings of blood chemistry; E87.2 Acidosis; I48.91 Unspecified atrial fibrillation; Z87.39 Personal history of other diseases of the musculoskeletal system and connective tissue; Z79.01 Long term (current) use of anticoagulants; Z79.51 Long term (current) use of inhaled steroids; Z79.2 Long term (current) use of antibiotics
CPT/HCPCS: 36415; 36430; 36600; 71045; 71045-26; 80053; 82728; 82803; 83605; 83615; 83735; 83880; 84100; 84484; 85007; 85025; 85027; 85379; 85610; 85730; 86140; 86900; 86901; 87040; 87804; 93005; 93010; 94667; 94668; 94760; 94761; 99222; 99232; 99238; 99285; 99285-25; A9270-GY; J1650; J7050; J8540; P9017; U0002